=== PATIENT | female | born 1980 | race Two or more races ===

== ENCOUNTER 2021-12-19 14:41 | Emergency (ER) | payer MEDICAID ==
[~2021-12-19] VITALS: Ht 165.1 cm; Wt 83.0 kg
[~2021-12-19 14:41] MED LIST: ALBU18; ALPR0.25
[2021-12-19] MEDS ORDERED: ONDANSETRON ODT 4 MG TAB PO ONE ×2 (15:30→16:30)
[2021-12-19] MEDS ORDERED: MORPHINE SULFATE INJECTION 2 MG/ML SYRG IM ONE (15:30)
[2021-12-19] MEDS ORDERED: KETOROLAC TROMETH 60MG/2ML VIAL IM ONE (16:30)
[2021-12-19] MEDS ORDERED: PROMETHAZINE HCL 25 MG/ML 1ML IM ONE (17:15)
[2021-12-19 18:00] VITALS: BP 110/78
[2021-12-19] MEDS ORDERED: PROM25TA5 PO (18:04)
[2021-12-19] MEDS ORDERED: BUTAPT PO (18:04)
== END 2021-12-19 18:39 | disposition home or self-care (01) ==
LOC: ER 14:41
DX: G43.909 Migraine, unspecified, not intractable, without status migrainosus (principal); Z87.39 Personal history of other diseases of the musculoskeletal system and connective tissue; J45.909 Unspecified asthma, uncomplicated; Z98.51 Tubal ligation status
CPT/HCPCS: 70450; 70486; 96372; 99284; J1885; J2270; J2550; Q0162